=== PATIENT | female | born 1970 | race Two or more races ===

== ENCOUNTER 2019-05-19 13:56 | Emergency (ER) | payer SELFPAY ==
[2019-05-19] MEDS ORDERED: Ondansetron 4 MG/2 ML SDV IVPUSH ONE (14:06)
[2019-05-19] MEDS ORDERED: Sodium Chloride 0.9% 10 ML Syringe FLUSH PRN (14:06)
[2019-05-19 14:34] LABS: CHLORIDE,CL 102 mmol/L (98-107); SODIUM,NA 139 mmol/L (136-145)
[2019-05-19] MEDS ORDERED: Sodium Chloride 0.9% 1,000 ML IV ONE ×2 (14:43→15:45)
[2019-05-19] MEDS ORDERED: Meclizine 25 MG Tab PO ONE (14:44)
[2019-05-19] MEDS ORDERED: Ketorolac 30 MG/ML SDV IVPUSH ONE (14:44)
[2019-05-19] MEDS ORDERED: Loperamide 2 MG Tab PO ONE (14:44)
[2019-05-19] MEDS ORDERED: Promethazine 25 MG/ML SDV IM ONE (14:45)
--- NOTE | 2019-05-19 14:50 | EDM.PDOC ---
ED HPI GENERAL MEDICAL PROBLEM - General Chief Complaint: General Stated Complaint: dizzyness,emesis Time Seen by Provider: 05/19/19 14:25 Source of Information: Reports: Patient History Limitations: Reports: No Limitations - History of Present Illness INITIAL COMMENTS - FREE TEXT/NARRATIVE: Patient brought to ER by family due to vomiting/diarrhea. Patient reports having 2-3 episodes of loose stools yesterday. Non-bloody. No stools today. Has had 3-4 episodes of emesis today. Also non-bloody. Unable to take her routine medications. Reports headache and light headed feeling. Denies sore throat/sinus congestion/ear pain. No respiratory complaints/cough/wheeze/SOB. No abdominal pain/cramping. Denies urinary changes/burning /hematuria/ frequency. No back pain. No focal neuro changes. Denies rash. No one else in family ill with similar symptoms. Has not taken any OTC medications for pain/diarrhea. Denies other acute changes during ROS. headache Pain Score (Numeric/FACES): 7 - Related Data Allergies Allergy/AdvReac Type Severity Reaction Status Date / Time No Known Allergies Allergy Verified 05/19/19 13:57 Home Meds: Home Meds Lisinopril 20 mg PO DAILY 04/25/15 [History] Omeprazole 20 mg PO BID 04/25/15 [History] Citalopram [Celexa] 40 mg PO DAILY 05/19/19 [History] Metoprolol Succinate [Toprol XL 50mg] 50 mg PO DAILY 05/19/19 [History] amLODIPine Besylate [Amlodipine Besylate] 10 mg PO DAILY 05/19/19 [History] buPROPion HCl [Bupropion Xl] 300 mg PO DAILY 05/19/19 [History] Past Medical History Cardiovascular History: Reports: Hypertension Gastrointestinal History: Reports: GERD [employer] 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 Endocrine/Metabolic History: Reports: Obesity/BMI 30+ Other Endocrine/Metabolic History: Diabetes Mellitus, hx of gestational diabetes with one - Past Surgical History Female Surgical History: Reports: Tubal Ligation Social & Family History - Family History Cardiac: Reports: Hypertension Musculoskeletal: Reports: Arthritis Endocrine/Metabolic: Reports: Diabetes, type II Oncologic: Reports: Colon - Tobacco Use Smoking Status *Q: Never Smoker Second Hand Smoke Exposure: No - Caffeine Use Caffeine Use: Reports: Coffee, Soda - Alcohol Use Alcohol Use History: Yes Alcohol Use Frequency: Rarely - Recreational Drug Use Recreational Drug Use: No ED ROS GENERAL - Review of Systems Review Of Systems: Comprehensive ROS is negative, except as noted in HPI. ED EXAM, GENERAL - Physical Exam Exam: See Below Exam Limited By: No Limitations General Appearance: Alert, No Apparent Distress, Obese, Other (Sitting on ER bed , has towel over her eyes. ) Eye Exam: Bilateral Eye: EOMI, PERRL Ears: Normal External Exam, Normal Canal, Hearing Grossly Normal, Normal TMs Nose: No: Nasal Deformity, Nasal Swelling, Nasal Drainage Throat/Mouth: Normal Lips, Normal Oropharynx, Normal Voice, No Airway Compromise Head: Atraumatic, Normocephalic Neck: Normal Inspection, Supple, Non-Tender, Full Range of Motion. No: Lymphadenopathy (L), Lymphadenopathy (R) Respiratory/Chest: No Respiratory Distress, Lungs Clear, Normal Breath Sounds, No Accessory Muscle Use, Chest Non-Tender Cardiovascular: Regular Rate, Rhythm, No Murmur GI/Abdominal: Soft, Non-Tender, Abnormal Bowel Sounds (decreased throughout). No: Guarding, Rigid, Rebound, Tender (Female) Exam: Deferred Rectal (Female) Exam: Deferred Back Exam: No: CVA Tenderness (L), CVA Tenderness (R), Muscle Spasm, Paraspinal Tenderness, Vertebral Tenderness Extremities: Non-Tender, Other (cap refill 3 sec) Neurological: Alert, Oriented, Normal Cognition, No Motor/Sensory Deficits Psychiatric: Normal Affect, Normal Mood Skin Exam: Warm, Dry, Intact, Normal Color Course - Vital Signs Last Recorded V/S: Last Vital Signs Temp 35.6 C 05/19/19 13:57 Pulse 62 05/19/19 15:18 Resp 15 05/19/19 15:06 BP 147/96 H 05/19/19 15:20 Pulse Ox 100 05/19/19 15:06 - Orders/Labs/Meds Orders: Active Orders 24 hr Category Date Time Status Peripheral IV Care [RC] . DIRECTED Care 05/19/19 14:06 Active HEPATITIS PANEL (4) [REF] Routine Lab 05/19/19 14:13 Received Sodium Chloride 0.9% [Saline Flush] Med 05/19/19 14:06 Active 10 ml FLUSH ASDIRECTED PRN Peripheral IV Insertion Adult [OM.PC] Routine Oth 05/19/19 14:06 Ordered Medication Orders Sodium Chloride (Saline Flush) 10 ml FLUSH ASDIRECTED PRN PRN Reason: Keep Vein Open Last Admin: 05/19/19 14:19 Dose: 10 ml Labs: Laboratory Tests 05/19/19 05/19/19 05/19/19 Range/Units 14:06 14:13 14:13 WBC Cancelled Corrected WBC Cancelled RBC Cancelled Hgb Cancelled Hct Cancelled MCV Cancelled MCH Cancelled MCHC Cancelled RDW Cancelled RDW Std Deviation Cancelled RDW Coeff of Vu Cancelled Plt Count Cancelled MPV Cancelled Neut % (Auto) (45.0-80.0) % Lymph % (Auto) (10.0-50.0) % [place] % (Auto) (2.0-14.0) % Eos % (Auto) (0.0-5.0) % Baso % (Auto) (0.0-2.0) % Neut # (Auto) (1.40-7.00) K/uL Lymph # (Auto) (0.50-3.50) K/uL [place] # (Auto) (0.00-1.00) K/uL Eos # (Auto) (0.00-0.50) K/uL Baso # (Auto) (0.00-0.20) K/uL Neutrophils % (Manual) Cancelled Band Neutrophils % Cancelled Lymphocytes % (Manual) Cancelled Atypical Lymphs % Cancelled Immat Monocytes % (Man) Cancelled Monocytes % (Manual) Cancelled Eosinophils % (Manual) Cancelled Basophils % (Manual) Cancelled Metamyelocytes % Cancelled Myelocytes % Cancelled Promyelocytes % Cancelled Blast Cells % Cancelled Plasma Cell % (Manual) Cancelled Nucleated RBC % Cancelled Immature Gran # Cancelled Absolute Neutrophils Cancelled Absolute Seg Neuts Cancelled Band Neutrophils # Cancelled Lymphocytes # (Manual) Cancelled Monocytes # (Manual) Cancelled Eosinophils # (Manual) Cancelled Basophils # (Manual) Cancelled Absolute Metamyelocyte Cancelled Absolute Myelocytes Cancelled Absolute Promyelocytes Cancelled Absolute Plasma Cells Cancelled Nucleated RBCs Cancelled Differential Comment Cancelled Bilobed Neuts Cancelled Hypersegmented Neuts Cancelled Variant Lymphocytes Cancelled Atypical Lymphocytes Cancelled Abnormal Lymphocytes Cancelled Reactive Lymphocytes Cancelled Vacuolated Monocytes Cancelled Absolute Blast Cells Cancelled Toxic Granulation Cancelled WBC Morphology Comment Cancelled Immature Plt Fraction Cancelled Plt Morphology Comment Cancelled Polychromasia Cancelled Hypochromasia Cancelled Poikilocytosis Cancelled Basophilic Stippling Cancelled Anisocytosis Cancelled Microcytosis Cancelled Macrocytosis Cancelled Spherocytes Cancelled Micro Spherocytes Cancelled Siderocytes Cancelled Sickle Cells Cancelled Target Cells Cancelled Tear Drop Cells Cancelled Ovalocytes Cancelled Stomatocytes Cancelled Haim Cells Cancelled Elliptocytes Cancelled Acanthocytes (Spur) Cancelled Rouleaux Cancelled Schistocytes Cancelled RBC Morph Comment Cancelled Smear Path Review Cancelled Sodium 139 (136-145) mmol/L Potassium 3.6 (3.5-5.1) mmol/L Chloride 102 (98-107) mmol/L Carbon Dioxide 25.7 (21.0-32.0) mmol/L BUN 8 (7-18) mg/dL Creatinine 0.56 (0.51-1.17) mg/dL Est Cr Clr Drug Dosing 111.75 mL/min Estimated GFR (MDRD) > 60 mL/min Glucose 119 H (74-106) mg/dL Calcium 9.0 (8.5-10.1) mg/dL Magnesium (1.8-2.4) mg/dL Total Bilirubin 0.4 (0.2-1.0) mg/dL AST 84 H (15-37) U/L ALT 111 H (12-78) U/L Alkaline Phosphatase 107 (46-116) IU/L Total Protein 8.3 H (6.4-8.2) g/dL Albumin 3.7 (3.4-5.0) g/dL Specimen Type Urincc Urine Color Jeanine Urine Appearance Slightly cloudy Urine pH 7.0 (5.0-9.0) Ur Specific [place] 1.015 (1.005-1.030) Urine Protein 30 H (NEGATIVE) mg/dL Urine Glucose (UA) Negative (NEGATIVE) mg/dL Urine Ketones Negative (NEGATIVE) mg/dL Urine Occult Blood Large H (NEGATIVE) Urine Nitrite Negative (NEGATIVE) Urine Bilirubin Negative (NEGATIVE) Urine Urobilinogen 0.2 (0.2-1.0) E.U./dL Ur Leukocyte Esterase Negative (NEGATIVE) Urine RBC 20-30 H /HPF Urine WBC 0-5 /HPF Ur Epithelial Cells Moderate H /LPF Urine Bacteria Many H (NONE TO FEW) /HPF Urinalysis Comment Slides for Path Review Cancelled 05/19/19 05/19/19 Range/Units 14:13 14:23 WBC 8.1 Corrected WBC RBC 5.03 Hgb 11.0 L Hct 36.2 MCV 72.0 L MCH 21.9 L MCHC 30.4 L RDW 19.0 H RDW Std Deviation RDW Coeff of Vu Plt Count 365 H MPV Neut % (Auto) 68.0 (45.0-80.0) % Lymph % (Auto) 20.5 (10.0-50.0) % [place] % (Auto) 8.4 (2.0-14.0) % Eos % (Auto) 2.6 (0.0-5.0) % Baso % (Auto) 0.5 (0.0-2.0) % Neut # (Auto) 5.47 (1.40-7.00) K/uL Lymph # (Auto) 1.65 (0.50-3.50) K/uL [place] # (Auto) 0.68 (0.00-1.00) K/uL Eos # (Auto) 0.21 (0.00-0.50) K/uL Baso # (Auto) 0.04 (0.00-0.20) K/uL Neutrophils % (Manual) Band Neutrophils % Lymphocytes % (Manual) Atypical Lymphs % Immat Monocytes % (Man) Monocytes % (Manual) Eosinophils % (Manual) Basophils % (Manual) Metamyelocytes % Myelocytes % Promyelocytes % Blast Cells % Plasma Cell % (Manual) Nucleated RBC % Immature Gran # Absolute Neutrophils Absolute Seg Neuts Band Neutrophils # Lymphocytes # (Manual) Monocytes # (Manual) Eosinophils # (Manual) Basophils # (Manual) Absolute Metamyelocyte Absolute Myelocytes Absolute Promyelocytes Absolute Plasma Cells Nucleated RBCs Differential Comment Bilobed Neuts Hypersegmented Neuts Variant Lymphocytes Atypical Lymphocytes Abnormal Lymphocytes Reactive Lymphocytes Vacuolated Monocytes Absolute Blast Cells Toxic Granulation WBC Morphology Comment Immature Plt Fraction Plt Morphology Comment Polychromasia Hypochromasia Poikilocytosis Basophilic Stippling Anisocytosis Microcytosis Macrocytosis Spherocytes Micro Spherocytes Siderocytes Sickle Cells Target Cells Tear Drop Cells Ovalocytes Stomatocytes Mica Cells Elliptocytes Acanthocytes (Spur) Rouleaux Schistocytes RBC Morph Comment Smear Path Review Sodium (136-145) mmol/L Potassium (3.5-5.1) mmol/L Chloride (98-107) mmol/L Carbon Dioxide (21.0-32.0) mmol/L BUN (7-18) mg/dL Creatinine (0.51-1.17) mg/dL Est Cr Clr Drug Dosing mL/min Estimated GFR (MDRD) mL/min Glucose (74-106) mg/dL Calcium (8.5-10.1) mg/dL Magnesium 1.8 (1.8-2.4) mg/dL Total Bilirubin (0.2-1.0) mg/dL AST (15-37) U/L ALT (12-78) U/L Alkaline Phosphatase (46-116) IU/L Total Protein (6.4-8.2) g/dL Albumin (3.4-5.0) g/dL Specimen Type Urine Color Urine Appearance Urine pH (5.0-9.0) Ur Specific [place] (1.005-1.030) Urine Protein (NEGATIVE) mg/dL Urine Glucose (UA) (NEGATIVE) mg/dL Urine Ketones (NEGATIVE) mg/dL Urine Occult Blood (NEGATIVE) Urine Nitrite (NEGATIVE) Urine Bilirubin (NEGATIVE) Urine Urobilinogen (0.2-1.0) E.U./dL Ur Leukocyte Esterase (NEGATIVE) Urine RBC /HPF Urine WBC /HPF Ur Epithelial Cells /LPF Urine Bacteria (NONE TO FEW) /HPF Urinalysis Comment Slides for Path Review Meds: Medications Generic Name Dose Route Start Last Admin Trade Name Freq PRN Reason Stop Dose Admin Sodium Chloride 10 ml 05/19/19 14:06 05/19/19 14:19 Saline Flush FLUSH 10 ml ASDIRECTED PRN Administration Keep Vein Open Discontinued Medications Generic Name Dose Route Start Last Admin Trade Name Freq PRN Reason Stop Dose Admin Sodium Chloride 1,000 mls @ 999 mls/hr 05/19/19 14:43 05/19/19 14:47 Normal Saline IV 05/19/19 15:43 999 mls/hr .BOLUS ONE Administration Sodium Chloride 1,000 mls @ 999 mls/hr 05/19/19 15:45 Normal Saline IV 05/19/19 16:45 .BOLUS ONE Ketorolac Tromethamine 30 mg 05/19/19 14:44 05/19/19 14:58 Toradol IVPUSH 05/19/19 14:45 30 mg ONETIME ONE Administration Lisinopril 10 mg 05/19/19 15:02 05/19/19 15:20 Prinivil PO 05/19/19 15:03 10 mg ONETIME ONE Administration Loperamide HCl 4 mg 05/19/19 14:44 05/19/19 14:58 Imodium Ad PO 05/19/19 14:45 4 mg ONETIME ONE Administration Meclizine HCl 25 mg 05/19/19 14:44 05/19/19 14:58 Antivert PO 05/19/19 14:45 25 mg ONETIME ONE Administration Metoprolol Succinate 50 mg 05/19/19 15:01 05/19/19 15:18 Toprol Xl PO 05/19/19 15:02 50 mg ONETIME ONE Administration Ondansetron HCl 4 mg 05/19/19 14:06 05/19/19 14:19 Zofran IVPUSH 05/19/19 14:07 4 mg ONETIME ONE Administration Promethazine HCl 25 mg 05/19/19 14:45 05/19/19 14:58 Phenergan IM 05/19/19 14:46 25 mg ONETIME ONE Administration - Re-Assessments/Exams Free Text/Narrative Re-Assessment/Exam: Given history and exam, suspect gastroenteritis. CBC/Chem/UA/Mg requested. Patient does not feel need to void. Suspect mild dehydration, IV fluid ordered. Zofran given which helped nausea. Phenergan/ Imodium ordered once nausea had shown some improvement. Toradol given for headache. Meclizine ordered to help with lightheadedness complaint. AST and ALT elevated. Given GI symptoms this could be reaction to GI infection , but cannot exclude other etiologies. Hepatitis panel added. Review of patient's previous AST/ALT levels show they were within normal limits. Hgb 11. Historically patient has levels in 10-11 range when chart reviewed. 05/19/19 17:31 Patient able to void and provide UA specimen after 1st liter of NS. Noted to have some RBCs but no suggestion of UTI/WBCs. She reported that the lightheaded feeling had resolved and that she felt much better. Refused second liter of IV fluid, wishing to be discharged. Discharged home. Recommend clear liquids only for rest of day and patient to advance diet as tolerated tomorrow. To follow up as needed if further problems noted. Recheck of AST/ALT in 1 week recommended. Departure - Departure Time of Disposition: 16:15 Disposition: Home, Self-Care 01 Condition: Good Clinical Impression: Gastroenteritis - Discharge Information *PRESCRIPTION DRUG MONITORING PROGRAM REVIEWED*: Not Applicable *COPY OF PRESCRIPTION DRUG MONITORING REPORT IN PATIENT GALE: Not Applicable Instructions: Meclizine tablets or capsules, Loperamide tablets or capsules, Ketorolac injection, Ondansetron injection, Viral Gastroenteritis, Adult, Easy- to-Read, Promethazine injection Referrals: PCP,Unknown [Primary Care Provider] - Forms: ED Department Discharge Additional Instructions: Clear liquids only for the rest of the day. You can advance your diet as tolerated starting tomorrow morning. OK to take Tylenol for pain/discomfort. Imodium can help with loose stools. Follow up as needed if symptoms return or if symptoms do not continue to improve over the next 24-48 hours. Please get your labs rechecked in one week. Make an appointment with your primary clinic for this. You had some elevations in the AST/ALT which are likely due to this illness. We want to make certain that those numbers improve. Sepsis Event Note - Evaluation Sepsis Screening Result: No Definite Risk - Focused Exam Vital Signs: Vital Signs Temp Pulse Pulse Resp BP BP Pulse Ox 05/19/19 15:20 147/96 H 05/19/19 15:18 62 147/96 H 05/19/19 15:06 55 L 15 147/96 H 100 05/19/19 14:00 60 153/88 H 05/19/19 13:57 35.6 C 62 14 176/91 H 100 Date Exam was Performed: 05/19/19 Time Exam was Performed: 17:31 - My Orders Last 24 Hours: My Active Orders 05/19/19 14:06 Peripheral IV Care [RC] . DIRECTED Sodium Chloride 0.9% [Saline Flush] 10 ml FLUSH ASDIRECTED PRN Peripheral IV Insertion Adult [OM.PC] Routine 05/19/19 14:13 HEPATITIS PANEL (4) [REF] Routine - Assessment/Plan Last 24 Hours: My Active Orders 05/19/19 14:06 Peripheral IV Care [RC] . DIRECTED Sodium Chloride 0.9% [Saline Flush] 10 ml FLUSH ASDIRECTED PRN Peripheral IV Insertion Adult [OM.PC] Routine 05/19/19 14:13 HEPATITIS PANEL (4) [REF] Routine
[2019-05-19] MEDS ORDERED: Metoprolol Succinate 50 MG Tab.ER PO ONE (15:01)
[2019-05-19] MEDS ORDERED: Lisinopril 10 MG Tab PO ONE (15:02)
[2019-05-19 15:15] VITALS: BP 147/96
[2019-05-19 15:19] VITALS: PULSE 62
== END 2019-05-19 16:20 | disposition home or self-care (01) ==
LOC: LL.ED 13:56
DX: K52.9 Noninfective gastroenteritis and colitis, unspecified (principal); I10 Essential (primary) hypertension; Z79.899 Other long term (current) drug therapy
CPT/HCPCS: 36415; 80053; 80074; 81001; 83735; 85025; 96361; 96372; 96374; 96375; 99284-25; A9270-GY; J1885; J2405; J2550; J7030

== ENCOUNTER 2024-03-19 17:20 | Emergency (ER) | payer SELFPAY ==
[2024-03-19] MEDS ORDERED: Sodium Chloride 0.9% 10 ML Syringe FLUSH PRN (17:47)
[2024-03-19] MEDS ORDERED: Naloxone 0.4 MG/ML SDV IVPUSH PRN (18:06)
[2024-03-19] MEDS: fentaNYL 50 MCG/ML SDV IVPUSH ONE ×2 (18:14→19:02)
[2024-03-19] MEDS: Ondansetron 4 MG/2 ML SDV IVPUSH ONE (18:16)
[2024-03-19 18:18] LABS: BASOPHILS ABSOLUTE AUTO 0.03 K/uL (0.00-0.20); BASOPHILS PERCENT AUTO 0.2 % (0.0-2.0); EOSINOPHILS PERCENT AUTO 1.6 % (0.0-5.0); HEMATOCRIT 39.7 % (34.0-46.0); HEMOGLOBIN 12.7 g/dL (11.7-15.5); IMMATURE GRAN ABSOLUTE AUTO 0.02 10^3/uL (0.00-0.50); IMMATURE GRAN PERCENT AUTO 0.2 % (0.0-5.0); LYMPHOCYTES ABSOLUTE AUTO 1.41 K/uL (0.50-3.50); LYMPHOCYTES PERCENT AUTO 11.3 % (10.0-50.0); MEAN CORPUSCULAR HEMOGLOBIN 27.3 pg (28.2-33.3); MEAN CORPUSCULAR VOLUME 85.4 fL (84.0-98.0); MONOCYTES PERCENT AUTO 5.6 % (2.0-14.0); NEUTROPHILS ABSOLUTE AUTO 10.12 K/uL (1.40-7.00); NEUTROPHILS PERCENT AUTO 81.1 % (45.0-80.0); PLATELET COUNT,PLT 242 K/uL (150-350); RED BLOOD CELL COUNT 4.65 M/uL (3.77-5.09); RED CELL DISTRIBUTION WIDTH 15.6 % (11.2-14.1); WHITE BLOOD CELL COUNT,WBC 12.5 K/uL (4.0-10.2)
[2024-03-19 18:19] LABS: BILIRUBIN,URINE SMALL (NEGATIVE); COLOR,URINE YELLOW; GLUCOSE,URINE NEGATIVE (NEGATIVE); KETONES,URINE NEGATIVE (NEGATIVE); LEUKOCYTE ESTERASE,URINE NEGATIVE (NEGATIVE); NITRITE,URINE NEGATIVE (NEGATIVE); OCCULT BLOOD,URINE LARGE (NEGATIVE); PROTEIN,URINE 100 mg/dL (NEGATIVE); UROBILINOGEN,URINE 0.2 E.U./dL (0.2-1.0)
[2024-03-19 18:20] LABS: APPEARANCE,URINE SLIGHTLY CLOUDY
[2024-03-19 18:25] LABS: AMORPHOUS SEDIMENT,URINE OCCASIONAL /HPF (0/HPF); BACTERIA,URINE NOT SEEN /HPF (NONE TO FEW); EPITHELIAL CELLS,URINE FEW /LPF; MUCUS,URINE FEW /LPF (NEGATIVE); WBC,URINE 0-5 /HPF
[2024-03-19 18:26] LABS: OTHER CRYSTALS,URINE RARE /HPF
[2024-03-19 18:27] LABS: AMPHETAMINES SCREEN, URINE NEGATIVE (NEGATIVE); BARBITURATE SCREEN,URINE NEGATIVE (NEGATIVE); BENZODIAZEPINES SCREEN,URINE NEGATIVE (NEGATIVE); COCAINE METABOLITES,URINE NEGATIVE (NEGATIVE); EDDP,URINE SCREEN NEGATIVE (NEGATIVE); METHAMPHETAMINES SCREEN, URINE NEGATIVE (NEGATIVE); TCA SCREEN,URINE POSITIVE (NEGATIVE); THC SCREEN,URINE 50 NG/ML POSITIVE (NEGATIVE)
[2024-03-19 18:29] LABS: INR 1.1 (0.9-1.1)
[2024-03-19 18:31] LABS: OXYCODONE SCREEN,URINE NEGATIVE (NEGATIVE)
[2024-03-19 18:32] LABS: BUPRENORPHINE SCREEN,URINE NEGATIVE (NEGATIVE)
[2024-03-19 18:35] LABS: ALBUMIN 3.5 g/dL (3.4-5.0); BILIRUBIN TOTAL 0.3 mg/dL (0.2-1.0); CALCIUM 9.2 mg/dL (8.5-10.1); CREATININE 0.63 mg/dL (0.51-1.17); EST CRCL DRUG DOSING (CG) 90.2 mL/min; POTASSIUM,K 3.6 mmol/L (3.5-5.1); PROTEIN TOTAL,TP 7.8 g/dL (6.4-8.2)
[2024-03-19 20:58] VITALS: BP 130/89; PULSE 62
== END 2024-03-19 21:00 ==
LOC: LL.ED 17:20
DX: K35.890 Other acute appendicitis without perforation or gangrene (principal); I10 Essential (primary) hypertension; K21.9 Gastro-esophageal reflux disease without esophagitis; E66.9 Obesity, unspecified; Z68.35 Body mass index [BMI] 35.0-35.9, adult; Z79.899 Other long term (current) drug therapy
CPT/HCPCS: 36415; 74176; 80053; 80305-QW; 80307; 81001; 85025; 85610; 96374; 96375; 96376; 99284; 99285-25; J2405; J3010

== ENCOUNTER 2024-06-21 14:00 | Emergency (ER) | payer SELFPAY ==
[2024-06-21] MEDS: Sodium Chloride 0.9% 10 ML Syringe FLUSH PRN (14:05)
[2024-06-21] MEDS: Ondansetron 4 MG/2 ML SDV IVPUSH ONE (14:05)
[2024-06-21] MEDS: Sodium Chloride 0.9% 1,000 ML IV ONE (14:26)
[2024-06-21] MEDS: Ondansetron 4 MG/2 ML SDV ONE (14:28)
[2024-06-21 14:40] LABS: BASOPHILS ABSOLUTE AUTO 0.04 K/uL (0.00-0.20); BASOPHILS PERCENT AUTO 0.6 % (0.0-2.0); EOSINOPHILS ABSOLUTE AUTO 0.17 K/uL (0.00-0.50); EOSINOPHILS PERCENT AUTO 2.4 % (0.0-5.0); HEMATOCRIT 37.2 % (34.0-46.0); HEMOGLOBIN 12.1 g/dL (11.7-15.5); IMMATURE GRAN ABSOLUTE AUTO 0.01 10^3/uL (0.00-0.04); IMMATURE GRAN PERCENT AUTO 0.1 % (0.0-0.4); LYMPHOCYTES ABSOLUTE AUTO 1.85 K/uL (0.50-3.50); MEAN CORPUSCULAR HGB CONC 32.5 g/dL (31.7-36.0); MEAN CORPUSCULAR VOLUME 86.1 fL (84.0-98.0); MONOCYTES ABSOLUTE AUTO 0.55 K/uL (0.00-1.00); MONOCYTES PERCENT AUTO 7.7 % (2.0-14.0); NEUTROPHILS PERCENT AUTO 63.2 % (45.0-80.0); PLATELET COUNT,PLT 228 K/uL (150-350); RED BLOOD CELL COUNT 4.32 M/uL (3.77-5.09); RED CELL DISTRIBUTION WIDTH 14.4 % (11.2-14.1); WHITE BLOOD CELL COUNT,WBC 7.1 K/uL (4.0-10.2)
[2024-06-21] MEDS: Ketorolac 15 MG/ML SDV IVPUSH ONE (14:44)
[2024-06-21] MEDS: Meclizine 25 MG Tab PO ONE (14:45)
[2024-06-21] MEDS: Diazepam 5 MG Tab PO ONE (14:45)
[2024-06-21 15:02] LABS: ALBUMIN 3.6 g/dL (3.4-5.0); BILIRUBIN TOTAL 0.4 mg/dL (0.2-1.0); CALCIUM 8.5 mg/dL (8.5-10.1); CARBON DIOXIDE,CO2 29.6 mmol/L (21.0-32.0); CREATININE 0.71 mg/dL (0.51-1.17); EST CRCL DRUG DOSING (CG) 80.04 mL/min; ETHANOL BLOOD MEDICAL 0.006 g/dL (0.000-0.080); MAGNESIUM 1.6 mg/dL (1.8-2.4); POTASSIUM,K 3.2 mmol/L (3.5-5.1); PROTEIN TOTAL,TP 7.2 g/dL (6.4-8.2)
[2024-06-21 15:03] LABS: ANION GAP 13.6 meq/L (7-15)
[2024-06-21] MEDS: Magnesium Sulf/Wat 2 GM/50 mL 2 GM in Premix Bag 1 BAG IV ONE (15:58)
[2024-06-21] MEDS: Potassium Bicarbonate/Cit Ac 20 MEQ Effervescent Tab PO ONE (15:58)
[2024-06-21 16:21] VITALS: PULSE 65
[2024-06-21] MEDS: Take Home: diazePAM 5 MG, 4 Tab Pack PO ONE (17:24)
[2024-06-21] MEDS: Take Home: Ondansetron 4 MG Tab.DIS, 5 Tab Pack PO ONE (17:24)
[2024-06-21] MEDS: Take Home: Meclizine HCl 25 MG, 6 Tab Pack PO ONE (17:25)
[2024-06-21 17:38] VITALS: BP 154/78
== END 2024-06-21 17:35 | disposition home or self-care (01) ==
LOC: LL.ED 14:00
DX: R42 Dizziness and giddiness (principal); E83.42 Hypomagnesemia; I10 Essential (primary) hypertension; K21.9 Gastro-esophageal reflux disease without esophagitis; E66.9 Obesity, unspecified; Z90.49 Acquired absence of other specified parts of digestive tract; Z79.899 Other long term (current) drug therapy; Z79.2 Long term (current) use of antibiotics; Z68.36 Body mass index [BMI] 36.0-36.9, adult
CPT/HCPCS: 36415; 70450; 80053; 80307; 83605; 83735; 85025; 87428-QW; 96361; 96365; 96366; 96375; 99284-25; A9270-GY; J1885; J2405; J3475; J7030; Q0162